=== PATIENT | male | born 1950 | race Caucasian/White ===

== ENCOUNTER → 2016-04-02 | Outpatient (CLI) | payer OTHER ==
--- NOTE | 2016-04-02 18:21 | DX ---
Right Hand, 3 Views, at 12:19 PM CLINICAL HISTORY: 66-year-old male sustained a cut with a table saw. Rule out open fracture. COMPARISON STUDY: None. FINDINGS: There is a soft tissue laceration at the level of the distal portion of the ring finger dis bibiana phalanx, with an associated cortical disruption over the dorsal aspect of the distal tuft. There is some gauze bandaging which obscures some fine bone detail. There are degenerative osteoarthritic f eatures noted at the thumb carpometacarpal joint, thumb interphalangeal joint, the index, third, and fifth DIP joints, as well as involving the third metacarpophalangeal joint (where there is joint spac e narrowing, osseous hypertrophy, and subchondral geode formation, as well as an old well-corticated dorsal chip fracture at the distal metacarpal head). There are osteophytes associated with the palmar -radial aspects of the second and third metacarpal heads. IMPRESSION: Acute posttraumatic change to the ring finger distal phalanx with a laceration and an ope n fracture at the level of the distal tuft.
== END ==
LOC: GIMAGING 12:20
PROVIDERS: ATTEND Nurse Practitioner Family
DX: S62.660B Nondisplaced fracture of distal phalanx of right index finger, initial encounter for open fracture (principal); W31.2XXA Contact with powered woodworking and forming machines, initial encounter
CPT/HCPCS: 73130-PO

== ENCOUNTER 2018-06-09 07:32 | Emergency (ER) | payer OTHER ==
[2018-06-09] MEDS ORDERED: HYDROCODONE/APAP 5/325 TAB PO ONE (08:14)
--- NOTE | 2018-06-09 08:19 | EDPHY ---
HPI/HX/ROS/PE/MDM Narrative: CHIEF COMPLAINT: Fall, right ear laceration HPI: The patient is a 68-year-old male with no significant past medical history. He is not on anticoagulants. He does wear hearing aids. Earlier this morning, he tripped over a dog bed and fell into the corner of a cabinet, which struck him directly in the right ear. He noted pain and blood in this area. He denies loss of consciousness or other injury. No neck pain. Initially presented to an urgent care who then sent into the ER. REVIEW OF SYSTEMS: Aside from elements discussed in the HPI, a comprehensive 10-point review of systems was reviewed and is negative. PMH: None significant. SOCIAL HISTORY: Denies alcohol or drug abuse. PHYSICAL EXAM: General:Patient is alert, in no acute distress. ENT: A complex laceration is present of the right ear including significant cartilage laceration. Total laceration length is 3 cm. TM appears intact but there is some blood in the canal obscuring total vision. Neck: Normal inspection. Full range of motion. Respiratory:No respiratory distress. Breath sounds normal bilaterally. Cardiovascular: Regular rate and rhythm. Strong peripheral pulses. Normal cap refill. Abdomen:The abdomen is nontender to palpation. There are no peritoneal signs. There are normal bowel sounds. Back: Normal to inspection. No tenderness to palpation. Skin: Normal color. No rash. Warm and dry. Extremities: Normal appearance. Full range of motion. Neuro: Oriented x3. Normal motor function. Normal sensory function. ED Course: I consulted Johanny Ni from ENT at 8:00 a.m.. 1000: Laceration has been repaired by ENT. See their note for details. - Data Points Medications Given: Discontinued Medications Hydrocodone Bitart/Acetaminophen ([place] 5/325) 1 tab PO EDNOW ONE Stop: 06/09/18 08:15 Last Admin: 06/09/18 08:19 Dose: 1 tab General Time Seen by Provider: 06/09/18 07:40 Initial Vital Signs: Initial Vital Signs Temperature (C) 36.6 C 06/09/18 07:35 Heart Rate 63 06/09/18 07:35 Respiratory Rate 16 06/09/18 07:35 Blood Pressure 136/78 H 06/09/18 07:35 O2 Sat (%) 95 06/09/18 07:35 O2 Delivery Mode Room Air Allergies/Adverse Reactions: No Known Allergies Allergy (Verified 06/09/18 07:38) Home Medications: Medication Instructions Recorded Cephalexin [Keflex] 500 mg PO TID #21 cap 06/09/18 oxyCODONE/APAP 5/325 [Percocet 5 - 10 mg PO Q4-6PRN PRN #14 tab 06/09/18 5/325] Departure - Departure Disposition: Home, Routine, Self-Care Clinical Impression: Laceration of ear, external, right, complicated Qualifiers: Encounter type: initial encounter Qualified Code(s): S01.311A - Laceration without foreign body of right ear, initial encounter Condition: Good Instructions: Laceration (ED) Additional Instructions: Follow-up with [facility] in one week Return to the ED for fever, pain , bleeding, redness or other concerns. Referrals: Kp Christopher MD [Primary Care Provider] - As per Instructions
[2018-06-09 10:24] VITALS: BP 132/85
--- NOTE | 2018-06-09 12:29 | GCON ---
[f rep st] CONSULTATION The patient is a 68-year-old male who early this morning, tripped over his dog bed and fell into the corner of a cabinet which then struck him directly into the right ear. He noted no loss of conscious ness. He had pain in bleeding. Neck feels okay. He does wear hearing aids. He is not on anticoagu lants. PAST MEDICAL HISTORY: Nothing significant. SOCIAL HISTORY: No alcohol or drug use. ALLERGIES: No known drug allergies. PHYSICAL EXAMINATION: GENERAL: Patient is alert and orientated, in no acute distress. HEAD: Atraumat ic, normocephalic. EARS: Right ear with a large stellate laceration through his luis angel with torn ca rtilage. Total laceration ends up being about 6 to 7 cm. TM is intact. NOSE: Clear. Pharynx clear . NECK: Supple. PROCEDURE: The right ear was cleansed and anesthetized with 1% lidocaine. Using a 4-0 Vicryl, the d eeper tissue was reapproximated and the cartilage was approximated using 5-0 Prolene; 7 cm of a leeann ate laceration were reapproximated. Then, a bolster dressing was applied using Xeroform gauze dressi ng. The patient tolerated this well. Minimal bleeding was encountered. ASSESSMENT AND PLAN: Patient with a large stellate laceration of his right ear with fracture of his cartilage. Everything was reapproximated. Patient tolerated this well. A bolster dressing was appli ed to help prevent hematoma development. He will return in 5 to 7 days for suture removal. The scott ent should be placed on Keflex and given some pain medications. /[id number]/MODL
== END 2018-06-09 10:17 | disposition home or self-care (01) ==
PROC: 09Q0XZZ Repair Right External Ear, External Approach (ICD-10-PCS; principal; 2018-06-09)
DX: S01.311A Laceration without foreign body of right ear, initial encounter (principal); W01.198A Fall on same level from slipping, tripping and stumbling with subsequent striking against other object, initial encounter; Y92.000 Kitchen of unspecified non-institutional (private) residence as the place of occurrence of the external cause